=== PATIENT | female | born 1985 | race Caucasian/White ===

== ENCOUNTER 2018-07-22 14:56 | Emergency (ER) | payer BC ==
[2018-07-22 15:03] VITALS: BMI 23.3
--- NOTE | 2018-07-22 18:26 | PDOC ---
History of Present Illness <Marj Brannonca - Last Filed: 07/22/18 19:03> <Mone Whitney - Last Filed: 07/23/18 00:24> - General Chief Complaint: Sore Throat Stated Complaint: SENT BY PCP Time Seen by Provider: 07/22/18 17:02 Past History - Past Medical History Asthma: No Cancer: No Cardiac Disorders: No COPD: No Diabetes: No HTN: No Seizures: No Thyroid Disease: No - Reproductive History (#): 3 Para: 2 Therapeutic (s) & number: No Spontaneous : 0 - Suicide/Smoking/Psychosocial Hx Smoking Status: No Smoking History: Never smoked Have you smoked in the past 12 months: No Number of Cigarettes Smoked Daily: 0 Hx Alcohol Use: No Drug/Substance Use Hx: No Substance Use Type: None Hx Substance Use Treatment: No <NishniranjanKezia [email or web address] - Last Filed: 07/22/18 19:03> <Mone Whitney - Last Filed: 07/23/18 00:24> - Past Medical History Allergies/Adverse Reactions: Allergies Allergy/AdvReac Type Severity Reaction Status Date / Time azithromycin [From Zithromax] AdvReac Mild Nausea Verified 07/22/18 15:01 [place] Allergy Intermediate Hives Uncoded 07/22/18 15:01 Home Medications: Ambulatory Orders Amoxicillin/Potassium Clav [Augmentin 875-125 Tablet] 1 each PO BID #14 tablet 07/22/18 Doxycycline Monohydrate [Monodox] 100 mg PO Q12H 07/22/18 Review of Systems - Review of Systems Able to Perform ROS?: Yes Comments:: 07/22/18 19:03 CONSTITUTIONAL: Absent: fever, chills, diaphoresis, generalized weakness, malaise, loss of appetite HEENT: Absent: rhinorrhea, nasal congestion, throat pain, throat swelling, difficulty swallowing, mouth swelling, ear pain, eye pain, visual Changes CARDIOVASCULAR: Absent: chest pain, loss of consciousness, palpitations, irregular heart rate, peripheral edema RESPIRATORY: Absent: cough, shortness of breath, dyspnea with exertion, orthopnea, wheezing, stridor, hemoptysis GASTROINTESTINAL: Absent: abdominal pain, abdominal distension, nausea, vomiting, diarrhea, constipation, melena, hematochezia GENITOURINARY: Absent: dysuria, frequency, urgency, hesitancy, hematuria, flank pain, genital pain MUSCULOSKELETAL: Absent: myalgia, arthralgia, joint swelling SKIN: Absent: rash, itching, pallor HEMATOLOGIC/IMMUNOLOGIC: Absent: easy bleeding, easy bruising, lymphadenopathy, frequent infections ENDOCRINE: Absent: unexplained weight gain, unexplained weight loss, heat intolerance, cold intolerance NEUROLOGIC: Absent: headache, focal weakness or paresthesias, dizziness, unsteady gait, seizure, mental status changes, bladder or bowel incontinence PSYCHIATRIC: Absent: anxiety, depression, suicidal or homicidal ideation, hallucinations. Is the patient limited Dutch proficient: No <Ora Brannon - Last Filed: 07/22/18 19:03> *Physical Exam - Vital Signs Last Vital Signs Temp Pulse Resp BP Pulse Ox 99.9 F H 103 H 18 115/73 99 07/22/18 15:01 07/22/18 15:01 07/22/18 15:01 07/22/18 15:01 07/22/18 15:01 - Physical Exam Comments: 07/22/18 19:03 GENERAL: Well developed, well nourished. Awake and alert. No acute distress. HEENT: Normocephalic, atraumatic. PERRLA, EOMI. No conjunctival pallor. Sclera are non- icteric. Moist mucous membranes. Oropharynx is clear. NECK: Supple. Full ROM. No JVD. Carotid pulses 2+ and symmetric, without bruits. No thyromegaly. No lymphadenopathy. CARDIOVASCULAR: Regular rate and rhythm. No murmurs, rubs, or gallops. Distal pulses are 2+ and symmetric. PULMONARY: No evidence of respiratory distress. Lungs clear to auscultation bilaterally. No wheezing, rales or rhonchi. ABDOMINAL: Soft. Non-tender. Non-distended. No rebound or guarding. No organomegaly. Normoactive bowel sounds. MUSCULOSKELETAL Normal range of motion at all joints. No bony deformities or tenderness. No CVA tenderness. EXTREMITIES: No cyanosis. No clubbing. No edema. No calf tenderness. SKIN: Warm and dry. Normal capillary refill. No rashes. No jaundice. NEUROLOGICAL: Alert, awake, appropriate. Cranial nerves 2-12 intact. No deficits to light touch and temperature in face, upper extremities and lower extremities. No motor deficits in the in face, upper extremities and lower extremities. Normoreflexic in the upper and lower extremities. Normal speech. Toes are down- going bilaterally. Gait is normal without ataxia. PSYCHIATRIC: Cooperative. Good eye contact. Appropriate mood and affect. <Ora Brannon - Last Filed: 07/22/18 19:03> - Vital Signs Last Vital Signs Temp Pulse Resp BP Pulse Ox 99.9 F H 103 H 18 115/73 99 07/22/18 15:01 07/22/18 15:01 07/22/18 15:01 07/22/18 15:01 07/22/18 15:01 <Mone Whitney - Last Filed: 07/23/18 00:24> Moderate Sedation - Procedure Monitoring Vital Signs: Procedure Monitoring Vital Signs Temperature 99.9 F H 07/22/18 15:01 Pulse Rate 103 H 07/22/18 15:01 Respiratory Rate 18 07/22/18 15:01 Blood Pressure 115/73 07/22/18 15:01 O2 Sat by Pulse Oximetry (%) 99 07/22/18 15:01 <Ora Brannon - Last Filed: 07/22/18 19:03> - Procedure Monitoring Vital Signs: Procedure Monitoring Vital Signs Temperature 99.9 F H 07/22/18 15:01 Pulse Rate 103 H 07/22/18 15:01 Respiratory Rate 18 07/22/18 15:01 Blood Pressure 115/73 07/22/18 15:01 O2 Sat by Pulse Oximetry (%) 99 07/22/18 15:01 <Mone Whitney - Last Filed: 07/23/18 00:24> ED Treatment Course - LABORATORY CBC & Chemistry Diagram: 07/22/18 18:52 07/22/18 18:52 <Ora Brannon - Last Filed: 07/22/18 19:03> - LABORATORY CBC & Chemistry Diagram: 07/22/18 18:52 07/22/18 18:52 <Mone Whitney - Last Filed: 07/23/18 00:24> Medical Decision Making - Medical Decision Making 07/22/18 18:51 The patient was seen and evaluated in conjunction with midlevel provider under my direct supervision, ancillary studies were reviewed. I agree with the plan as outlined by DREW Brannon. HPI, workup/dispo as outlined. I have personally evaluated the patient at the bedside Vital signs are reviewed, +LGF and tachycardia. Airway intact, breathing comfortably. no trismus. neck supple, FROM. no voice changes. Uvula is midline. Left tonsil appears inflamed and enlarged but not obstructive airway. 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 Patient has also been on outpatient antibiotics status post doxycycline and amoxicillin without relief. Previously she was strep positive several weeks ago but tested today and negative. She was offered CT imaging but due to radiation risks, or risks outweighing the benefits holding off and treating with IV antibiotics which patient prefers. Patient was also offered diagnostic/therapeutic peritonsillar drainage with needle versus scalpel patient declines this and would prefer to be observed with medications a reevaluation with ENT consultation in the morning. Will be administered Toradol, dexamethasone, IV fluids and adequate hydration. Basic labs and lytes. reassess pt offered admission, but declines. which is appropriate, nontoxic, as she is tolerating PO intake and secretions. well appearing, NAD, repeat VS improved. labs are wnl. ENT f/u offered, strict return precautions provided - respiratory distress, airway involvement, fevers, dehydration, increasing pain/swelling and throat discomfort. pt and family amenable to this plan of action, discharge in stable condition. Augmentin sent for tonsillitis. hydration encouraged. nsaid/ tylenol prn pain control. 07/22/18 18:54 07/22/18 21:08 <Mone Whitney - Last Filed: 07/23/18 00:24> *DC/Admit/Observation/Transfer <Ora Brannon - Last Filed: 07/22/18 19:03> <Mone Whitney - Last Filed: 07/23/18 00:24> Diagnosis at time of Disposition: Tonsillitis - Discharge Dispostion Disposition: HOME Condition at time of disposition: Stable - Prescriptions Prescriptions: Amoxicillin/Potassium Clav [Augmentin 875-125 Tablet] 1 each PO BID #14 tablet - Referrals Referrals: Stephani Buck MD [Primary Care Provider] - 2 Days Marito Al MD [Staff Physician] - Call tomorrow - Patient Instructions Printed Discharge Instructions: DI for Pharyngitis/Tonsillopharyngitis -- Adult Additional Instructions: Thank you for choosing [facility]. It was a pleasure taking care of you. You may take Motrin 600 mg every 6 hours by mouth as needed for mild to moderate pain. Take Motrin with food. Please stop taking the Doxycycline. Instead, you were prescribed Augmentin Please call ENT doctor tomorrow for follow-up If you do not feel improvement in 24 hours, please return to ED Return to the Emergency Department if your symptoms worsen or persist or have other concerning symptoms. - Post Discharge Activity
[2018-07-22] MEDS ORDERED: AMPICILLIN NA/SULBACTAM NA 1.5 GM in SODIUM CHLORIDE 100 ML IVPB ONE (18:56)
[2018-07-22] MEDS ORDERED: DEXAMETHASONE SOD PHOSPHATE 10 MG/1 ML VIAL IVPUSH ONE (18:57)
[2018-07-22] MEDS ORDERED: KETOROLAC TROMETHAMINE 15 MG/ML VIAL IVPUSH ONE (18:57)
[2018-07-22 19:13] LABS: BASO % 0.5 % (0-2.0); EOS % 1.3 % (0-4.5); HEMATOCRIT 38.6 % (32.4-45.2); HEMOGLOBIN 13.6 GM/dL (10.7-15.3); LYMPH % 16.6 % (8-40); MCH 27.7 pg (25.7-33.7); MCHC 35.3 g/dl (32.0-36.0); MEAN CELL VOLUME 78.6 fl (80-96); MEAN PLT VOLUME 9.8 fl (7.5-11.1); NEUT % 73.6 % (42.8-82.8); PLATELET COUNT 280 K/MM3 (134-434); RDW 13.3 % (11.6-15.6); WHITE BLOOD COUNT 10.9 K/mm3 (4.0-10.0)
[2018-07-22 19:26] LABS: URINE APPEARANCE CLEAR; URINE BILIRUBIN NEGATIVE (<2.0 mg/dL); URINE COLOR YELLOW; URINE GLUCOSE (UA) NEGATIVE (NEGATIVE); URINE KETONE 2+ (NEGATIVE); URINE LEUK ESTERASE TRACE (NEGATIVE); URINE NITRITE NEGATIVE (NEGATIVE); URINE PROTEIN NEGATIVE (NEGATIVE); URINE UROBILINOGEN NEGATIVE mg/dL (0.2-1.0)
[2018-07-22] MEDS ORDERED: guaiFENesin 200 MG/10 ML 10 ML UNIT-DOSE CUPS PO ONE (19:41)
[2018-07-22 19:42] LABS: EPI CELLS RARE /HPF (FEW); URINE MUCUS MANY
[2018-07-22 20:02] LABS: ALK PHOS 81 U/L (45-117); ANION GAP 11 MMOL/L (8-16); BILIRUBIN,TOTAL 0.5 mg/dL (0.2-1); BLOOD UREA NITROGEN 12 mg/dL (7-18); CALCIUM 9.2 mg/dL (8.5-10.1); CHLORIDE 102 mmol/L (98-107); CO2 24 mmol/L (21-32); CREATININE 0.6 mg/dL (0.55-1.3); GLUCOSE,RANDOM 74 mg/dL (74-106); POTASSIUM 3.9 mmol/L (3.5-5.1); SGOT/AST 13 U/L (15-37); SGPT/ALT 23 U/L (13-61); SODIUM 137 mmol/L (136-145); TOT PROT 8.4 g/dl (6.4-8.2)
[2018-07-22] MEDS ORDERED: guaiFENesin/CODEINE 5 ML UNIT-DOSE CUPS PO ONE (20:05)
[2018-07-22] MEDS ORDERED: DEXAMETHASONE SOD PHOSPHATE 10 MG/1 ML VIAL ONE (20:05)
[2018-07-22] MEDS ORDERED: KETOROLAC TROMETHAMINE 15 MG/ML VIAL ONE (20:05)
--- NOTE | 2018-07-22 20:37 | PDOC ---
*Physical Exam - Vital Signs Last Vital Signs Temp Pulse Resp BP Pulse Ox 99.9 F H 103 H 18 115/73 99 07/22/18 15:01 07/22/18 15:01 07/22/18 15:01 07/22/18 15:01 07/22/18 15:01 ED Treatment Course - LABORATORY CBC & Chemistry Diagram: 07/22/18 18:52 07/22/18 18:52 - ADDITIONAL ORDERS Additional order review: Laboratory Results 07/22/18 07/22/18 07/22/18 19:10 18:52 18:52 Sodium 137 Potassium 3.9 Chloride 102 Carbon Dioxide 24 Anion Gap 11 BUN 12 Creatinine 0.6 Creat Clearance w eGFR > 60 Random Glucose 74 Lactic Acid 1.1 Calcium 9.2 Total Bilirubin 0.5 AST 13 L ALT 23 Alkaline Phosphatase 81 Total Protein 8.4 H Albumin 4.0 Urine Color Yellow Urine Appearance Clear Urine pH 5.0 D Ur Specific [place] 1.023 Urine Protein Negative Urine Glucose (UA) Negative Urine Ketones 2+ H Urine Blood Negative Urine Nitrite Negative Urine Bilirubin Negative Urine Urobilinogen Negative Ur Leukocyte Esterase Trace Urine WBC (Auto) 4 Urine RBC (Auto) None Ur Epithelial Cells Rare Urine Mucus Many 07/22/18 18:52 RBC 4.90 MCV 78.6 L MCHC 35.3 RDW 13.3 D MPV 9.8 Neutrophils % 73.6 Lymphocytes % 16.6 Monocytes % 8.0 Eosinophils % 1.3 Basophils % 0.5 - Medications Given in the ED: ED Medications Discontinued Medications Generic Name Dose Route Start Last Admin Trade Name Freq PRN Reason Stop Dose Admin Dexamethasone Sodium Phosphate 10 mg 07/22/18 18:57 07/22/18 20:17 Decadron Injection - IVPUSH 07/22/18 18:58 10 mg ONCE ONE Administration Guaifenesin 10 ml 07/22/18 19:41 07/22/18 20:17 Robitussin - PO 07/22/18 19:42 10 ml ONCE ONE Administration Ampicillin Sodium/Sulbactam 100 mls @ 200 mls/hr 07/22/18 18:56 07/22/18 20: 17 Sodium 1.5 gm/ Sodium Chloride IVPB 07/22/18 19:25 200 mls/hr ONCE ONE Administration Ketorolac Tromethamine 15 mg 07/22/18 18:57 07/22/18 20:17 Toradol Injection - IVPUSH 07/22/18 18:58 15 mg ONCE ONE Administration Medical Decision Making - Medical Decision Making Patient signed out to me by DREW Payan Patient resting in NAD Mentions already feeling some improvement in pain prior to getting any meds administered Patient airway intact Patient requesting to go home Will d/c patient on Augmentin; advised to stop the doxy Repeat vitals: BP 109/72 HR 95 T 98.3 Will refer to ENT Plan D/W Dr. Whitney 07/22/18 20:33 *DC/Admit/Observation/Transfer Diagnosis at time of Disposition: Tonsillitis - Discharge Dispostion Disposition: HOME Condition at time of disposition: Stable Decision to Admit order: No - Prescriptions Prescriptions: Amoxicillin/Potassium Clav [Augmentin 875-125 Tablet] 1 each PO BID #14 tablet - Referrals Referrals: Stephani Buck MD [Primary Care Provider] - 2 Days Marito Al MD [Staff Physician] - Call tomorrow - Patient Instructions Printed Discharge Instructions: DI for Pharyngitis/Tonsillopharyngitis -- Adult Additional Instructions: Thank you for choosing [facility]. It was a pleasure taking care of you. You may take Motrin 600 mg every 6 hours by mouth as needed for mild to moderate pain. Take Motrin with food. Please stop taking the Doxycycline. Instead, you were prescribed Augmentin Please call ENT doctor tomorrow for follow-up If you do not feel improvement in 24 hours, please return to ED Return to the Emergency Department if your symptoms worsen or persist or have other concerning symptoms. - Post Discharge Activity
[2018-07-23 04:51] VITALS: BP 109/72; PULSE 95; TEMP 98.3
--- NOTE | 2018-07-23 22:04 | EKG ---
Test Reason : Blood Pressure : / mmHG Vent. Rate : 103 BPM Atrial Rate : 103 BPM P-R Int : 130 ms QRS Dur : 082 ms QT Int : 346 ms P-R-T Axes : 068 040 035 degrees QTc Int : 453 ms SINUS TACHYCARDIA OTHERWISE NORMAL ECG WHEN COMPARED WITH ECG OF 09-AUG-2012 15:13, NO SIGNIFICANT CHANGE WAS FOUND Confirmed by MARLEEN BUSTILLOS MD ([id number]) on 07/23/2018 10:04:12 PM Referred By: Confirmed By:MARLEEN BUSTILLOS MD
== END 2018-07-22 21:16 | disposition home or self-care (01) ==
LOC: JER 14:56
PROC: 3E03329 Introduction of Other Anti-infective into Peripheral Vein, Percutaneous Approach (ICD-10-PCS; principal; 2018-07-22)
PROC: 3E0333Z Introduction of Anti-inflammatory into Peripheral Vein, Percutaneous Approach (ICD-10-PCS; 2018-07-22)
PROC: 3E0333Z Introduction of Anti-inflammatory into Peripheral Vein, Percutaneous Approach (ICD-10-PCS; 2018-07-22)
DX: J03.90 Acute tonsillitis, unspecified (principal)
CPT/HCPCS: 36415; 80053; 81003; 81015; 83605; 85025; 87070; 87880; 93005; 93010; 99282-25; J1100